=== PATIENT | male | born 1945 | race Two or more races ===

== ENCOUNTER 2017-08-15 16:12 | Emergency (ER) | payer MEDICARE ==
[2017-08-15 16:49] LABS: Bilirubin Negative (Negative); Blood, Urine Large (Negative); Clarity CLEAR (Clear); Glucose, Urine (Dipstick) Negative (Negative); Leukocyte Negative (Negative); Nitrite Negative (Negative); Protein, Urine (Dipstick) Negative (Neg-Trace); Specific Gravity, Urine 1.007 (1.002-1.036); Urobilinogen 0.2 mg/dL (0.2-1.0)
[2017-08-15 16:52] LABS: Bacteria/HPF None Seen HPF (None Seen); Hyaline Casts/LPF 0-3 HYALINE CAST LPF (0-3 Hyaline); Pathc Cast-AUWi Flag 0.58 (0-2.49); Squamous Epithelial None Seen HPF (0-3); WBC/HPF None Seen HPF (0-3)
== END 2017-08-15 20:00 | disposition home or self-care (01) ==
LOC: ERS 16:12
DX: R31.9 Hematuria, unspecified (principal); I10 Essential (primary) hypertension
CPT/HCPCS: 81003; 81015; 99283

== ENCOUNTER 2021-09-15 09:23 | Emergency (ER) | payer MEDICARE ==
[2021-09-15 09:59] LABS: Bilirubin Unable to Interpret (Negative); Blood, Urine Unable to Interpret (Negative); Clarity Hazy (Clear); Glucose, Urine (Dipstick) Unable to Interpret mg/dL (Negative); Ketone, Urine Unable to Interpret mg/dL (Negative); Leukocyte Unable to Interpret (Negative); Nitrite Unable to Interpret (Negative); Protein, Urine (Dipstick) Unable to Interpret mg/dL (Neg-Trace); Specific Gravity, Urine 1.007 (1.002-1.036); Urobilinogen UNABLE TO INTERPRET mg/dL (Less than 2)
[2021-09-15 10:01] LABS: RBC/HPF Greater than 50 HPF (0-3); Squamous Epithelial 0-3 HPF (0-3); WBC/HPF 0-3 HPF (0-3)
[2021-09-15 10:02] LABS: Bacteria/HPF Rare-Few HPF (None Seen)
== END 2021-09-15 12:15 | disposition home or self-care (01) ==
LOC: ERS 09:23
DX: R31.9 Hematuria, unspecified (principal); E78.5 Hyperlipidemia, unspecified; E78.00 Pure hypercholesterolemia, unspecified
CPT/HCPCS: 81003; 81015; 87086

== ENCOUNTER 2021-09-17 17:08 | Emergency (ER) | payer MEDICARE ==
[2021-09-17 19:55] LABS: Bilirubin Unable to Interpret (Negative); Blood, Urine Large (Negative); Clarity Cloudy (Clear); Glucose, Urine (Dipstick) Unable to Interpret mg/dL (Negative); Ketone, Urine Unable to Interpret mg/dL (Negative); Leukocyte Unable to Interpret Leu/uL (Negative); Nitrite Unable to Interpret (Negative); Protein, Urine (Dipstick) Unable to Interpret mg/dL (Neg-Trace); Urobilinogen UNABLE TO INTERPRET mg/dL (Less than 2)
[2021-09-17 20:00] LABS: pH, Urine 6.9 (5.0-9.0)
[2021-09-17 20:03] LABS: RBC/HPF Greater than 50 HPF (0-3)
[2021-09-17 20:04] LABS: Bacteria/HPF 1+ HPF (None Seen); Squamous Epithelial 0-3 HPF (0-3)
== END 2021-09-17 21:15 | disposition home or self-care (01) ==
LOC: ERS 17:08
DX: R33.9 Retention of urine, unspecified (principal); N39.0 Urinary tract infection, site not specified; E78.5 Hyperlipidemia, unspecified; E78.00 Pure hypercholesterolemia, unspecified
CPT/HCPCS: 51702; 81003; 81015; 87086

== ENCOUNTER 2023-05-24 06:41 | Emergency (ER) | payer MEDICARE ==
[2023-05-24 07:24] LABS: Bilirubin Negative (Negative); pH, Urine 7.5 (5.0-9.0)
[2023-05-24 07:25] LABS: Blood, Urine Unable to Interpret (Negative); Clarity Cloudy (Clear); Glucose, Urine (Dipstick) Unable to Interpret mg/dL (Negative); Ketone, Urine Unable to Interpret mg/dL (Negative); Leukocyte Unable to Interpret (Negative); Nitrite Unable to Interpret (Negative); Protein, Urine (Dipstick) Unable to Interpret mg/dL (Neg-Trace); Urobilinogen UNABLE TO INTERPRET mg/dL (Less than 2)
[2023-05-24 07:29] LABS: Bacteria/HPF None Seen HPF (None Seen); CAUTI Indications for Culture Acute Hematuria; RBC/HPF Greater than 50 HPF (0-3); Squamous Epithelial None Seen HPF (0-3); WBC/HPF 0-3 HPF (0-3)
[2023-05-24 07:30] LABS: Urine Culture Reflex No No
== END 2023-05-24 08:33 | disposition home or self-care (01) ==
LOC: ERS 06:41
DX: R31.0 Gross hematuria (principal); R03.0 Elevated blood-pressure reading, without diagnosis of hypertension
CPT/HCPCS: 81001; 87086; 99283

== ENCOUNTER 2023-06-01 15:37 | Emergency (ER) | payer MEDICARE | END 2023-06-01 18:06 | disposition home or self-care (01) | LOC: ERS 15:37 | DX: R33.9 Retention of urine, unspecified (principal) | CPT/HCPCS: 51702; 99283 ==

== ENCOUNTER 2023-06-15 07:04 | Outpatient (CLI) | payer MEDICARE ==
[2023-06-15 07:59] LABS: Hematocrit 35.9 % (38.8-50.0); Hemoglobin 11.5 g/dL (13.5-17.5); Mean Corpuscular Hemoglobin 25.1 pg (27.0-33.0); Mean Corpuscular Volume 78.2 fl (81.2-95.1); Mean Platelet Volume 8.1 fl (7.4-10.4); Platelet Count 444 10x3/uL (150-450); RBC Distribution Width 14.3 % (11.5-14.5); Red Blood Cell (RBC) Count 4.59 10x6/uL (4.32-5.72)
[2023-06-15 08:10] LABS: PTT 25.6 sec (22.0-33.0); Prothrombin Time 10.8 sec (9.5-12.1)
[2023-06-15 08:13] LABS: Anion Gap 14 mmol/L (10-20); BUN (Urea Nitrogen) 7 mg/dL (8.4-25.7); Calc. Creatinine Clearance 0 mL/min (70-130); Calcium 9.9 mg/dL (7.8-10.44); Carbon Dioxide 26 mmol/L (23-31); Chloride 98 mmol/L (98-107); Estimated GFR 91; Glucose 127 mg/dL (83-110); Potassium 4.3 mmol/L (3.5-5.1); Sodium 134 mmol/L (136-145)
== END 2023-06-15 07:05 | disposition home or self-care (01) ==
LOC: LABBT 07:04
PROVIDERS: ATTEND Urology
DX: Z01.812 Encounter for preprocedural laboratory examination (principal); N40.0 Benign prostatic hyperplasia without lower urinary tract symptoms
CPT/HCPCS: 80048; 85027; 85610; 85730

== ENCOUNTER 2023-06-21 07:13 | Day surgery (SDC) | payer MEDICARE ==
[2023-06-15 07:52] VITALS: BMI 18.3
[2023-06-21] MEDS ORDERED: fentaNYL PF 100 MCG/2 ML SYRINGE ONE (09:15)
[2023-06-21] MEDS ORDERED: PROPOFOL 20 ML ONE (09:16)
[2023-06-21] MEDS ORDERED: Lidocaine 1% PF 5 ML VIAL ONE (09:17)
[2023-06-21] MEDS ORDERED: Ondansetron PF 4 MG/2 ML Vial ONE (09:17)
[2023-06-21] MEDS ORDERED: LevoFLOXacin D5W 500 mg (100 mL) BAG ONE (09:23)
[2023-06-21] MEDS ORDERED: Oxybutynin 5 MG TAB ONE (11:12)
[2023-06-21] MEDS ORDERED: Phenazopyridine HCl 100 MG TAB ONE (11:12)
[2023-06-21] MEDS ORDERED: fentaNYL 50 mcg/mL 1 mL Vial ONE ×2 (11:26→11:33)
[2023-06-21] MEDS ORDERED: HYDROcodone/Acetaminophen 5/325 mg Tablet ONE (12:33)
== END 2023-06-21 12:59 | disposition home or self-care (01) ==
LOC: SDC 07:13
PROVIDERS: ATTEND Urology
PROC: 0V508ZZ Destruction of Prostate, Via Natural or Artificial Opening Endoscopic (ICD-10-PCS; principal; 2023-06-21)
DX: N40.1 Benign prostatic hyperplasia with lower urinary tract symptoms (principal); R33.8 Other retention of urine; N02.9 Recurrent and persistent hematuria with unspecified morphologic changes; N28.1 Cyst of kidney, acquired; N20.0 Calculus of kidney
CPT/HCPCS: 52648; J3010; J1956; J2405; J2704